=== PATIENT | male | born 2000 | race Hispanic/Latino ===

== ENCOUNTER 2025-06-17 18:46 | Emergency (ER) | payer SELFPAY ==
[~2025-06-17] VITALS: Ht 175.3 cm; Wt 79.4 kg
[2025-06-17 19:32] VITALS: BP 142/66; PULSE 90; RESP 19; TEMP 98.8; O2SAT 100
--- NOTE | 2025-06-17 19:39 | HMCIMG ---
EXAM CR right shoulder, 2 views CLINICAL HISTORY Initial radiograph COMPARISON None provided FINDINGS BONES No acute fracture or aggressive osseous lesion is identified. JOINTS There is an anteroinferior glenohumeral joint dislocation with the humeral head located in a subcoracoid position. No definite associated fracture is seen on these views. SOFT TISSUES Lobulated calcific density is present inferior to the clavicle, which may represent dystrophic calcification or sequela of prior trauma. The remaining soft tissues are otherwise unremarkable. IMPRESSION * Anteroinferior (subcoracoid) glenohumeral dislocation of the right shoulder without definite associated fracture on these views. * Lobulated calcific density inferior to the clavicle, favoring dystrophic or posttraumatic calcification. /[place]
--- NOTE | 2025-06-17 20:37 | ERN ---
General Chief Complaint: Shoulder Injury/Pain Stated Complaint: POSSIBLE RIGHT SHOULDER DISLOCATION Time Seen by MD: 18:49 Time Seen by Midlevel: 18:49 Source: patient History of Present Illness Initial Comments Patient is a 24-year-old male presenting to the emergency department for evaluation of a right shoulder dislocation. Patient reports having a history of chronic shoulder dislocations. Patient states that he was lifting some heavy grocery bags when he felt his shoulder pop out of place Allergies: Coded Allergies: No Known Drug Allergies (Unverified Allergy, Unknown, 06/17/25) Past Medical History Past Medical History: No Pertinent History Past Surgical History: Other Surgical History Other: NECK SURGERY ROS Dictation CONSTITUTIONAL: Negative except for HPI HEAD/FACE: Negative except for HPI EENT: Negative except for HPI RESPIRATORY: Negative except for HPI GASTROINTESTINAL/ABDOMINAL: Negative except for HPI GENITOURINARY: Negative except for HPI MUSCULOSKELETAL: Negative except for HPI INTEGUMENTARY: Negative except for HPI NEUROLOGICAL/PSYCH: Negative except for HPI HEMATOLOGIC/LYMPHATIC: Negative except for HPI All Systems Negative, Except as noted above. 13 point review of systems assessed and all negative except for above. Physical Exam Physical Exam Dictation Vital Signs reviewed General Appearance: Alert, oriented x 3, no acute distress, well developed, nourished. Head and Face: non-traumatic. Eyes: PERRL, pink conjunctivas, eyelid no trauma, anterior chamber with arcus senilis. Ears: Pinnas intact and no signs of trauma or erythema ear canals clear and no discharge TM no erythema Nose: No discharge, no bleeding. Oropharynx: Mouth normal, tongue pink, pharynx clear,no erythema, tonsils no exudates, no abscesses noted, mucous membrane moist Neck: Supple, non-tender, no thyromegaly, no masses, no JVD, no bruits Breast:Deferred Chest:No tenderness, no crepitus, no paradoxical movement, no retractions Lungs:Clear, well-ventilated, symmetric, no rales, no wheezing, no rhonchi, no stridor, good breath sounds bilaterally Heart: Regular rate, regular rhythm, no murmur, no gallops Vascular: no peripheral edema, Abdomen: Soft, positive bowel sounds, nondistended, no guarding, nontender, no rebound, no masses no hepatomegaly, no splenomegaly, no Little's sign, no hernias. Rectal: Deferred Genital: Deferred Neurological: Normal speech, motor function intact, sensory function intact Musculoskeletal: Neck nontender, full range of motion, back nontender, full range of motion, Extremities: Deformity to the right shoulder Skin: Color pink, dry, no turgor, no rash, no lacerations, no abrasions, no contusions. Lymphatic: Deferred MDM MDM: Patient is a 24-year-old male presenting to the emergency department for evaluation of a right shoulder dislocation. Patient reports having a history of chronic shoulder dislocations. Patient states that he was lifting some heavy grocery bags when he felt his shoulder pop out of place. An initial x-ray was obtained which shows a right shoulder dislocation. The patient was sedated with 200 mg of propofol. We initially administered 40 mg of propofol and titrated up by 20 however the patient reports having a history of frequent alcohol use. A total of 200 mg of propofol were administered. The shoulder was successfully reduced with no complications. Plan was to observe patient for 1-2 hour for the procedure but he is refusing stating the full 1 hour for observation so his partner and the patient himself signed out against medical advice Differential diagnosis: Shoulder dislocation, fracture, contusion There are no social concerns with this patient. Prescription drug management Prescriptions will include: None Medical management and examination interpretation discussions were had by me with other qualified healthcare professionals as indicated for the patient's care. ED Course Orders Procedure Category Date Status Time Shoulder Comp 2+Vws Rt RAD 06/17/25 Resulted 18:53 Fentanyl Citrate Pf PHA 06/17/25 Complete 0.05 Mg/Ml (Fentanyl 19:00 Shoulder Comp 2+Vws Rt RAD 06/17/25 Taken 18:53 Propofol 20ml Vial PHA 06/17/25 Complete (Diprivan 20ml Vial) 19:00 Current Medications Medications (Trade) Dose Ordered Sig/Parvin Route PRN Reason Start Time Stop Time Status Last Admin Dose Admin Fentanyl Citrate (FENTanyl CITRate PF 50 MCG/ 1 ML 2ML VIAL) 100 mcg ONCE ONCE IVP 06/17/25 19:00 06/17/25 19:01 DC 06/17/25 20:16 Propofol (DIPRivan 20ML VIAL) 100 mg ONCE ONCE IV 06/17/25 19:00 06/17/25 19:01 DC 06/17/25 20:16 Vital Signs Date Time Temp Pulse Resp B/P (MAP) Pulse Ox O2 Delivery O2 Flow Rate FiO2 06/17/25 19:32 98.8 90 19 142/66 100 Room Air* 0 21 06/17/25 18:47 97.5 87 16 136/77 98 Room Air DX & DISP Disposition: AMA Departure Impression: Primary Impression: Recurrent dislocation, right shoulder Condition: Stable Referrals: SELF,REFERRAL (PCP) I have reviewed the case, and I agree with, Diagnosis and Plan I performed the substantive portion of the visit. I have reviewed and personally made and approve the management plan that is documented in the note by myself or the JOSE ANTONIO. I acknowledge for responsibility for the patient's management plan. AUDRA CHAN PAC Jun 17, 2025 20:37
--- NOTE | 2025-06-17 20:39 | NUR ---
PATIENT OPTED TO GO HOME AMA HE SAID 'HE IS USED TO WITH THESE OCCASIONS' AND HE FEEL BETTER. SECURED AMA FORMED SIGNED BY HIM AND HIS GIRLFRIEND. THEY FULLY UNDERSTAND THAT HOSPITAL IS NOT RESPONSIBLE FOR THE PATIENT ANYMORE
--- NOTE | 2025-06-17 20:53 | HMCIMG ---
EXAM: Right shoulder radiograph 1 view HISTORY: Post reduction COMPARISON: Prior imaging TECHNIQUE: AP views of the shoulder FINDINGS: Humeral head has been reduced back into the glenoid fossa. Stable appearance of the acromioclavicular joint. No definite fracture seen. Lungs are clear. IMPRESSION: Reduction of shoulder dislocation /[place]
== END 2025-06-17 20:35 | disposition left against medical advice (07) ==
LOC: EDH 18:46
DX: M24.411 Recurrent dislocation, right shoulder (principal); Z98.890 Other specified postprocedural states; X50.0XXA Overexertion from strenuous movement or load, initial encounter; Y93.89 Activity, other specified; Y92.89 Other specified places as the place of occurrence of the external cause; Y99.8 Other external cause status
CPT/HCPCS: 99285; 23650; 73030 ×2; 99152; J3010; J2704; J3490